=== PATIENT | female | born 1990 | race African-American/Black ===

== ENCOUNTER 2016-08-20 11:34 | Emergency (ER) | payer MEDICAID ==
[~2016-08-20] VITALS: Ht 160 cm; Wt 105.7 kg
[2016-08-20 11:46] VITALS: BP 123/83
[2016-08-20 15:46] LABS: Basophils # (auto) 0.1 uL; Basophils % (auto) 1.1 % (0.0-2.0); Eosinophils # (auto) 0.3 uL; Eosinophils % (auto) 3.8 % (0.0-7.0); Hematocrit 40.6 % (36.0-46.0); Lymphocytes # (auto) 3.3 uL; Lymphocytes % (auto) 38.1 % (10.0-50.0); Mean Corpuscular Hemoglobin 28.2 pg (28.0-32.0); Mean Corpuscular Volume 88.1 fL (80.0-100.0); Mean Platelet Volume 8.5 fL (7.4-10.4); Monocytes # (auto) 0.3 uL; Monocytes % (auto) 3.2 % (0.0-12.0); Neutrophils # (auto) 4.7 uL; Neutrophils % (auto) 53.8 % (37.0-80.0); Platelet Count (auto) 333 10^3/uL (140-450); Red Cell Distribution Width 13.5 % (11.6-16.0); White Blood Cell 8.7 10^3/uL (4.4-10.8)
[2016-08-20 16:04] LABS: Albumin 3.5 g/dL (3.4-5.0); BUN/Creatinine Ratio 15.2; Calcium 8.5 mg/dL (8.5-10.1)
[2016-08-20 16:07] LABS: Bilirubin, Total 0.3 mg/dL (0.2-1.0); Total Protein 7.7 g/dL (6.4-8.2)
== END 2016-08-20 16:37 | disposition home or self-care (01) ==
LOC: ER 11:35
DX: E04.2 Nontoxic multinodular goiter (principal); Z88.0 Allergy status to penicillin
CPT/HCPCS: 36415; 76536; 80053; 84443; 85025; 85049

== ENCOUNTER 2016-11-14 12:24 | Emergency (ER) | payer MEDICAID | END 2016-11-14 14:16 | disposition left against medical advice (07) | LOC: ER 12:34 | DX: J02.9 Acute pharyngitis, unspecified (principal); Z53.21 Procedure and treatment not carried out due to patient leaving prior to being seen by health care provider ==